=== PATIENT | female | born 1980 | race Caucasian/White ===

== ENCOUNTER 2018-10-17 18:09 | Inpatient (IN) | payer OTHER ==
[~2018-10-17] VITALS: Ht 157.5 cm; Wt 4.1 kg
[~2018-10-17 18:09] MED LIST: PRENATA CHEWAB1 EACH PO
== END 2018-11-11 14:03 | DRG 788 ==
LOC: O/R 11-08 05:55 → OB/GYN 11-08 05:55 → RECOVERY 11-08 07:00 → OB/GYN 11-08 10:42 → RECOVERY 11-08 17:31 → OB/GYN 11-11 14:03
PROVIDERS: ADMIT Obstetrics & Gynecology Maternal & Fetal Medicine
PROC: 4A1HXCZ Monitoring of Products of Conception, Cardiac Rate, External Approach (ICD-10-PCS; 2018-11-08)
PROC: 10D00Z1 Extraction of Products of Conception, Low, Open Approach (ICD-10-PCS; principal; 2018-11-08 07:00)
DX: O34.211 Maternal care for low transverse scar from previous cesarean delivery (principal); O75.82 Onset (spontaneous) of labor after 37 completed weeks of gestation but before 39 completed weeks gestation, with delivery by (planned) cesarean section; Z3A.39 39 weeks gestation of pregnancy; Z37.0 Single live birth